=== PATIENT | male | born 1965 | race African-American/Black ===

== ENCOUNTER 2017-07-15 15:30 | Observation (INO) | payer OTHER ==
[2017-07-15 16:24] LABS: #Eosinphils 0.1 thou/uL (0.0-0.7); #Lymphocytes 1.3 thou/uL (1.20-3.40); #Monocytes 0.6 thou/uL (0.11-0.59); %Basophils 0.2 % (0.0-1.0); %Eosinophils 0.9 % (0.0-10.0); %Lymphocytes 15.7 % (21.0-51.0); %Monocytes 7.6 % (0.0-10.0); Hematocrit 38.8 % (42.0-52.0); Mean Platelet Volume 7.1 fL (7.4-10.4); Red Blood Cell (RBC) Count 4.19 mill/uL (4.70-6.10)
[2017-07-15 16:43] LABS: Lactic Acid - Sepsis 1.8 mmol/L (0.5-2.2)
--- NOTE | 2017-07-15 16:46 | CT ---
HEAD CT NONCONTRAST: Date: 07/15/17 INDICATION: Altered mental status. FINDINGS: There is no evidence of ventriculomegaly, mass effect, midline shift, or acute intracranial hemorrha ge. Mild mucosal thickening of paranasal sinuses is present. Subtle areas of white matter hypoattenu ation indicate mild chronic microvascular ischemic disease. IMPRESSION: No acute intracranial hemorrhage or mass effect. POS: [facility]
[2017-07-15 16:47] LABS: ALT (SGPT) 37 U/L (8-55); AST (SGOT) 22 U/L (5-34); Alkaline Phosphatase 84 U/L (40-150); Anion Gap 12 mmol/L (10-20); BUN (Urea Nitrogen) 19 mg/dL (8.9-20.6); Bilirubin, Total 0.2 mg/dL (0.2-1.2); CK (CPK) 821 U/L (30-200); Calc. Creatinine Clearance 0 mL/min (70-130); Calcium 9.1 mg/dL (7.8-10.44); Carbon Dioxide 26 mmol/L (22-29); Chloride 104 mmol/L (98-107); Estimated GFR-MDRD 40; Globulin 3.3 g/dL (2.4-3.5); Protein, Total 7.2 g/dL (6.0-8.3)
[2017-07-15 16:48] LABS: Troponin I Less than 0.010 ng/mL (< 0.028)
--- NOTE | 2017-07-15 16:48 | RAD ---
PORTABLE AP CHEST: Date: 07/15/17 HISTORY: Altered mental status. COMPARISON: None available. FINDINGS: Cardiac silhouette and bronchovascular markings are accentuated by shallow depth of inspiration and portable technique of the study. There are minimal linear and patchy densities at the medial right l shruthi base, probably related to superimposition of structures and suboptimal depth of inspiration acce ntuating the vascular structures. Osseous structures are intact. IMPRESSION: No acute cardiopulmonary process. POS: [facility]
[2017-07-15 16:53] LABS: Acetaminophen Less than 6.0 mcg/mL (10.0-30.0); Lipase 27 U/L (8-78); Salicylate Less than 8.0 mg/dL (15.0-30.0)
[2017-07-15] MEDS ORDERED: SODIUM CHLORIDE IVPB SCH (19:45)
[2017-07-15] MEDS ORDERED: FOSPHENYTOIN SODIUM IVPB SCH (19:45)
[2017-07-15] MEDS ORDERED: ADMIXTURE FEE IVPB SCH (19:45)
[2017-07-15 19:58] LABS: Bilirubin Negative (Negative); Blood, Urine Negative (Negative); Glucose, Urine (Dipstick) Negative (Negative); Ketone, Urine Negative (Negative); Nitrite Negative (Negative); Protein, Urine (Dipstick) Negative (Neg-Trace); Urobilinogen 0.2 mg/dL (0.2-1.0)
[2017-07-15 20:08] LABS: Anion Gap 10 mmol/L (-14-95); Lactate 1.49 mmol/L (0.50-2.20); POC Est. GFR-MDRD-African-Amer Greater than 60 (2-60); POC Estimated GFR-MDRD 52 (2-60); T. Carbon Dioxide 28.2 mmol/L (1.0-85.0); pH (Venous) 7.322 (7.35-7.45)
[2017-07-15 20:09] LABS: Amphetamine Not Detected (NotDetected); Methadone Not Detected (NotDetected); Methamphetamine Not Detected (NotDetected)
[2017-07-15] MEDS ORDERED: Piperacillin/Tazobactam 4.5 GM VIAL ONE (20:41)
[2017-07-15] MEDS ORDERED: Dextrose 50% Abboject 50 ML SYRINGE SLOW IVP PRN (22:07)
[2017-07-15] MEDS ORDERED: Diabetic Tussin 200 MG/10 ML UDCUP PO PRN (22:07)
[2017-07-15] MEDS ORDERED: Lorazepam 1 MG TAB PO PRN (22:07)
[2017-07-15] MEDS ORDERED: traMADol HCl 50 MG TAB PO PRN (22:07)
[2017-07-15] MEDS ORDERED: Dextrose 5% in Water 1,000 ML IV PRN (22:07)
[2017-07-15] MEDS ORDERED: Mag-Al 1200 mg/1200 mg/30 ML UDCUP PO PRN (22:07)
[2017-07-15] MEDS ORDERED: cloNIDine 0.1 MG TAB PO PRN (22:07)
[2017-07-15] MEDS ORDERED: Nitroglycerin 0.4 MG TAB (25 Tab Bottle) SL PRN (22:07)
[2017-07-15] MEDS ORDERED: Acetaminophen 325 MG TAB PO PRN (22:07)
[2017-07-15] MEDS ORDERED: Loratadine 10 MG TAB PO PRN (22:07)
[2017-07-15] MEDS ORDERED: Insulin Regular 300 UNITS/3 ML VIAL SC PRN ×2 (22:07)
[2017-07-15] MEDS ORDERED: Calcium Carbonate 500 MG ChewTAB PO PRN (22:07)
[2017-07-15] MEDS ORDERED: HYDROcodone/Acetaminophen 5/325 mg Tablet PO PRN (22:07)
[2017-07-15] MEDS ORDERED: hydrALAZINE 20 MG/ML VIAL SLOW IVP PRN (22:07)
[2017-07-15] MEDS ORDERED: Bisacodyl 5 MG TAB PO PRN ×2 (22:07)
[2017-07-15] MEDS ORDERED: Benzonatate 100 MG CAP PO PRN (22:07)
[2017-07-15] MEDS ORDERED: Ondansetron HCl/PF 4 MG/2 ML Vial IVP PRN (22:07)
[2017-07-15] MEDS ORDERED: Milk Of Magnesia 30 ML UDCUP PO PRN (22:07)
[2017-07-15] MEDS ORDERED: Senokot 8.6 MG TAB PO PRN ×2 (22:07)
[2017-07-15] MEDS: Sodium Chloride 0.9% 1,000 ML IV SCH (22:38)
[2017-07-15 22:40] VITALS: BMI 36.0
[2017-07-15 23:02] LABS: Troponin I Less than 0.010 ng/mL (< 0.028)
[2017-07-15] MEDS ORDERED: PROVENTIL INHALER 6.7 G (200 INHALATIONS) INH PRN (23:40)
[2017-07-16 01:52] LABS: Troponin I Less than 0.010 ng/mL (< 0.028)
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
[2017-07-16] MEDS: Sodium Chloride 0.9% 1,000 ML IV SCH (03:57)
[2017-07-16 05:17] LABS: #Eosinphils 0.1 thou/uL (0.0-0.7); #Monocytes 0.7 thou/uL (0.11-0.59); #Neutrophils 4.2 thou/uL (1.40-6.50); %Basophils 0.1 % (0.0-1.0); %Eosinophils 1.8 % (0.0-10.0); %Lymphocytes 37.2 % (21.0-51.0); %Monocytes 9.2 % (0.0-10.0); Hematocrit 39.1 % (42.0-52.0); Mean Platelet Volume 6.9 fL (7.4-10.4); Red Blood Cell (RBC) Count 4.22 mill/uL (4.70-6.10); White Blood Cell (WBC) Count 8.1 thou/uL (4.8-10.8)
[2017-07-16 05:41] LABS: Anion Gap 8 mmol/L (10-20); BUN (Urea Nitrogen) 16 mg/dL (8.9-20.6); CK (CPK) 674 U/L (30-200); Calc. Creatinine Clearance 126 mL/min (70-130); Calcium 9.3 mg/dL (7.8-10.44); Carbon Dioxide 28 mmol/L (22-29); Chloride 107 mmol/L (98-107); Estimated GFR-MDRD 84
[2017-07-16] MEDS ORDERED: Mometasone 200 MCG HFA INHALER INH SCH (06:30)
[2017-07-16] MEDS ORDERED: Beclomethasone 40 mcg 120 PUFF/8.7 GM INH INH SCH (07:00)
[2017-07-16] MEDS ORDERED: Triamterene/Hydrochlorothiazide 37.5 mg/25 mg Tablet PO SCH (09:00)
[2017-07-16] MEDS ORDERED: Fosphenytoin Sodium 100 MG in Sodium Chloride 0.9% 50 ML IVPB SCH (09:00)
[2017-07-16] MEDS ORDERED: Famotidine 20 MG TAB PO SCH (09:00)
[2017-07-16] MEDS ORDERED: NPH, Human Insulin Isophane 300 UNIT/3 ML VIAL SC SCH ×2 (09:00→21:00)
[2017-07-16] MEDS ORDERED: Amlodipine 5 MG TAB PO SCH (09:00)
[2017-07-16] MEDS ORDERED: FLU VACC QS2017-18 36 mo. & older 0.5 ML SYRINGE IM ONE (09:00)
[2017-07-16] MEDS ORDERED: Enoxaparin Sodium 40 MG/0.4 ML SYRINGE SC SCH (09:00)
[2017-07-16] MEDS ORDERED: Atorvastatin Calcium 40 MG TAB PO SCH (09:00)
--- NOTE | 2017-07-16 10:38 | PDOC.PN ---
- Subjective Encounter Start Date: 07/16/17 Encounter Start Time: 07:15 Subjective: awake and oriented well -: no sob, is hungry and wanting to eat - Objective MAR Reviewed: Yes Vital Signs & Weight: Vital Signs (12 hours) Temp Pulse Resp BP Pulse Ox 07/16/17 07:43 98 F 60 18 142/78 H 97 07/16/17 06:21 98 07/16/17 06:19 62 12 07/16/17 03:02 98.1 F 62 20 130/72 96 07/16/17 00:11 96 07/15/17 23:40 98.1 F 66 18 121/66 96 Weight Weight 249 lb 3.2 oz I&O: 07/15/17 07/16/17 07/17/17 06:59 06:59 06:59 Intake Total 1706 Output Total 625 Balance 1706 -625 Result Diagrams: 07/16/17 04:55 07/16/17 04:55 Phys Exam - Physical Examination HEENT: PERRLA, moist MMs Neck: no JVD, supple Respiratory: no wheezing, no rales Cardiovascular: RRR, no significant murmur Gastrointestinal: soft, non-tender, positive bowel sounds Musculoskeletal: no edema, pulses present Neurological: non-focal, moves all 4 limbs Psychiatric: A&O x 3 Dx/Plan (1) Altered mental status Code(s): R41.82 - ALTERED MENTAL STATUS, UNSPECIFIED Status: Resolved Comment: sec to likely seizure/hypotension or hypoglycemia-all resolved (2) Hypoglycemia Code(s): E16.2 - HYPOGLYCEMIA, UNSPECIFIED Status: Resolved (3) Hypotension Status: Resolved (4) Seizure disorder Code(s): G40.909 - EPILEPSY, UNSP, NOT INTRACTABLE, WITHOUT STATUS EPILEPTICUS Status: Chronic (5) Dyslipidemia Code(s): E78.5 - HYPERLIPIDEMIA, UNSPECIFIED Status: Chronic (6) DM type 2 (diabetes mellitus, type 2) Status: Chronic Qualifiers: Diabetes mellitus complication status: with unspecified complications 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
[2017-07-16 12:17] VITALS: BP 155/80; TEMP 98.3
--- NOTE | 2017-07-16 18:04 | CON ---
DATE OF CONSULTATION: 07/16/2017 NEUROLOGIC CONSULTATION CONSULTING PHYSICIAN: Hospitalist Service. IMPRESSION: 1. Syncopal episode secondary to hypotension and probable bradycardia from overmedication. 2. Long history of mild simple partial seizures with rare generalized tonic clonic events. 3. Subtherapeutic Dilantin level. PLAN: 1. Increase Dilantin to 400 mg daily. 2. The patient can be discharged back to the unit. 3. Adjustment and blood pressure therapy as needed. Mr. Arango is a 52-year-old man who is currently an inmate. He reports having a history of seizures s ada he was a child. He was taking Dilantin when he was younger, but discontinued it for many years . He continued to have some very mild seizures, most of which were simple partial in nature. When he went into the unit, he apparently had a blackout, which was thought possibly to be secondary to s eizures. He started back on Dilantin 300 mg per day. He has been given medication recently for shahriar atment of his blood pressure and he started feeling short of breath and bit lightheaded. He sat him self down and apparently blacked out. He had documented systolic pressure of 70 according to this a dmission history and physical. His blood pressures have rebounded to a more normal range since admi ssion. He has not had any type of seizure activity. PAST MEDICAL HISTORY: Otherwise, negative. FAMILY HISTORY: Noncontributory. ALLERGIES: IBUPROFEN, PENICILLIN. MEDICATION LIST: Reviewed. REVIEW OF SYSTEMS: No complaint of headache, nausea, vomiting, vertigo, lateralized weakness or num bness. PHYSICAL EXAMINATION: VITAL SIGNS: Blood pressure 155/80, pulse 75, respirations 18, temperature 98.3. HEENT: Pupils equal and reactive. Conjunctivae clear. NEUROLOGIC: He is alert and appropriate. His speech is fluent and clear. Cranial nerves are intac t. Motor exam shows symmetric strength. There are no abnormal movements. Sensation is intact to l ight touch. Gait was not tested. CT scan of the brain was normal. LABORATORY STUDIES: Reviewed and only notable for some mildly elevated glucoses around 172. SUMMARY: A 52-year-old man with a history of seizures since childhood with a blackout, which was mo re likely secondary to hypotension and possibly bradycardia. His vital signs are much better now, I would agree with continuing Dilantin at 400 mg per day.
--- NOTE | 2017-07-16 21:12 | DIS ---
DATE OF ADMISSION: 07/15/2017 DATE OF DISCHARGE: 07/16/2017 DISCHARGE DISPOSITION: To [facility]. PRIMARY DISCHARGE DIAGNOSES: Altered mental state secondary to hypotension and initial suspicion for seizure. SECONDARY DISCHARGE DIAGNOSES: History of seizure disorder; dyslipidemia; diabetes mellitus, type 2; obesity. PROCEDURES DONE DURING HOSPITALIZATION: CT brain done on the day of admission showed no acute intracranial abnormality. Chest x-ray done showed no acute cardiopulmonary abnormalities. Blood cultures x2, preliminary culture shows no growth. Urine culture no growth. H\T\H are 12 and 39, platelet count is 284, with 51% neutrophils. CK levels were 674. Prolactin 7.52. Initial BUN and creatinine were 19 and 1.7. One set of cardiac enzymes were negative. Lipase was 27. Urine drug screen was positive for barbiturates. DISCHARGE MEDICATIONS: Albuterol inhaler q.6 hourly p.r.n. for his asthma, Norvasc 5 mg p.o. daily, atorvastatin 40 mg p.o. daily, QVAR inhaler 80 mcg as before, Novolin N 10 units subcu q.a.m., lisinopril 5 mg p.o. daily, Lopressor 50 mg twice daily, phenytoin extended release 300 mg p.o. daily. ALLERGIES: MOTRIN and PENICILLIN. DISCHARGE PLAN: The patient to follow up with primary care physician at the custodial unit/usp unit in 1 week. He also needs to check and record fingerstick glucose, blood pressure and pulse on a daily basis for a period of 10 days, to follow up with his primary care physician for changes in his medications. BRIEF COURSE DURING HOSPITALIZATION: The patient initially was sent from [facility] after he was found slumped over in his cell. He was feeling very weak, tired and lethargic as well. The patient's initial systolic blood pressures were in the 70s. He also had mentioned to the admitting physician that his medications were all up titrated for his blood pressure and diabetes. In view of this, patient was placed under observation. He was fluid resuscitated in the ER and was placed under observation on the stroke unit. He was evaluated by Dr. Stephen and has been advised to continue Dilantin at 400 mg daily. His hypertensive and diabetic medications both were held. The patient soon woke up and was fully oriented around 7:00 a.m. this morning. He has ambulated to the restroom and back with no dizziness. His blood pressure and his fingerstick glucose readings were picking up and were fairly stable. He has been placed gingerly on small doses of antihypertensive medications and diabetic medications. Please note these need to be slowly up titrated at the custodial unit via primary care physician. He needs to be checked for fingerstick glucose, blood pressure and pulse on a daily basis for any changes in his medications. He is otherwise neurologically and hemodynamically stable and has been cleared for discharge by Neurology. Please see a [id number] documentation on [employer] for the day of discharge. SAMMIE
== END 2017-07-16 18:01 ==
LOC: ERS 15:30 → 2SE 21:38
PROVIDERS: ADMIT Internal Medicine; ATTEND Internal Medicine
DX: I95.9 Hypotension, unspecified (principal); R41.82 Altered mental status, unspecified; G40.909 Epilepsy, unspecified, not intractable, without status epilepticus; E78.5 Hyperlipidemia, unspecified; E66.9 Obesity, unspecified; R53.83 Other fatigue; I10 Essential (primary) hypertension; F31.9 Bipolar disorder, unspecified; R09.02 Hypoxemia; M62.82 Rhabdomyolysis; E11.649 Type 2 diabetes mellitus with hypoglycemia without coma; J45.909 Unspecified asthma, uncomplicated; Z68.35 Body mass index [BMI] 35.0-35.9, adult; Z79.4 Long term (current) use of insulin; Z79.899 Other long term (current) drug therapy; Z88.6 Allergy status to analgesic agent; Z88.0 Allergy status to penicillin; Z90.89 Acquired absence of other organs; Z87.891 Personal history of nicotine dependence
CPT/HCPCS: 36415; 36416; 70450; 71010; 80048; 80053; 80185; 80306; 80307; 81003; 82140; 82330; 82550; 82553; 82803; 83605; 83690; 84146; 84484; 85025; 85379; 87040; 87077; 87086; 93005; 93306; 94760; 96361; 96365; 96372; A4216; G0378; J1650; J1815; J2543; J7050; Q2009

== ENCOUNTER 2020-11-26 14:34 | Emergency (ER) | payer OTHER, SELFPAY ==
[2020-11-26 15:29] LABS: #Eosinphils 0.1 thou/uL (0.0-0.7); #Lymphocytes 1.9 thou/uL (1.20-3.40); #Monocytes 0.4 thou/uL (0.11-0.59); #Neutrophils 3.7 thou/uL (1.40-6.50); %Basophils 0.6 % (0.0-1.0); %Eosinophils 1.4 % (0.0-10.0); %Lymphocytes 30.5 % (21.0-51.0); %Neutrophils 60.6 % (42.0-75.0); Hemoglobin 12.7 g/dL (14.0-18.0); Mean Corpuscular HGB CONC 31.2 g/dL (32.0-36.0); Mean Corpuscular Hemoglobin 28.7 pg (27.0-31.0); Mean Corpuscular Volume 91.9 fL (78.0-98.0); Mean Platelet Volume 6.9 fL (7.4-10.4); Platelet Count 343 thou/uL (130-400); RBC Distribution Width 12.5 % (11.5-14.5); Red Blood Cell (RBC) Count 4.42 mill/uL (4.70-6.10); White Blood Cell (WBC) Count 6.1 thou/uL (4.8-10.8)
--- NOTE | 2020-11-26 15:33 | CT ---
CT head noncontrast HISTORY: Fall. Injury. COMPARISON: 07/15/2017. FINDINGS: There is no evidence of acute intracranial hemorrhage or infarct. Mild chronic ischemic sma ll vessel disease within the basal ganglia and periventricular white matter. There is no mass effect or shift of midline structures. Visualized paranasal sinuses remain well aerated. IMPRESSION : No acute abnormalities are demonstrated.
[2020-11-26 15:46] LABS: ALT (SGPT) 12 U/L (8-55); AST (SGOT) 9 U/L (5-34); Albumin 3.3 g/dL (3.5-5.0); Alkaline Phosphatase 122 U/L (40-110); Anion Gap 12 mmol/L (10-20); BUN (Urea Nitrogen) 18 mg/dL (8.4-25.7); Bilirubin, Total 0.3 mg/dL (0.2-1.2); CK (CPK) 109 U/L (30-200); Calc. Creatinine Clearance 0 mL/min (70-130); Calcium 8.6 mg/dL (7.8-10.44); Carbon Dioxide 29 mmol/L (22-29); Chloride 100 mmol/L (98-107); Globulin 3.2 g/dL (2.4-3.5); Glucose 314 mg/dL (70-105); Potassium 3.7 mmol/L (3.5-5.1); Protein, Total 6.5 g/dL (6.0-8.3); Sodium 137 mmol/L (136-145)
--- NOTE | 2020-11-29 10:30 | EKG ---
Test Reason : Blood Pressure : / mmHG Vent. Rate : 110 BPM Atrial Rate : 110 BPM P-R Int : 132 ms QRS Dur : 090 ms QT Int : 330 ms P-R-T Axes : 072 074 051 degrees QTc Int : 446 ms Sinus tachycardia Minimal voltage criteria for LVH, may be normal variant Nonspecific T wave abnormality Abnormal ECG Benign early repolarization Confirmed by HUMA TORRES, KATIUSKA Latham ([id number]), editor news MARSHALL ALCANTARA ([id number]) on 11/29/2020 10:29:47 AM Referred By: Confirmed By:KATIUSKA FINN MD
== END 2020-11-26 16:30 | disposition home or self-care (01) ==
LOC: ERS 14:34
DX: R55 Syncope and collapse (principal); S09.90XA Unspecified injury of head, initial encounter; I10 Essential (primary) hypertension; E10.9 Type 1 diabetes mellitus without complications; G40.909 Epilepsy, unspecified, not intractable, without status epilepticus; J45.909 Unspecified asthma, uncomplicated; Z87.891 Personal history of nicotine dependence
CPT/HCPCS: 36415; 70450; 80053; 82550; 83605; 85025; 93005

== ENCOUNTER 2020-12-24 11:45 | Emergency (ER) | payer SELFPAY ==
[2020-12-24 12:20] LABS: #Basophils 0.1 thou/uL (0.0-0.2); #Eosinphils 0.1 thou/uL (0.0-0.7); #Monocytes 0.7 thou/uL (0.11-0.59); #Neutrophils 3.6 thou/uL (1.40-6.50); %Basophils 1.9 % (0.0-1.0); %Eosinophils 1.5 % (0.0-10.0); %Monocytes 10.3 % (0.0-10.0); %Neutrophils 55.3 % (42.0-75.0); Hemoglobin 12.2 g/dL (14.0-18.0); Mean Corpuscular HGB CONC 32.8 g/dL (32.0-36.0); Mean Corpuscular Hemoglobin 30.5 pg (27.0-31.0); Mean Platelet Volume 6.7 fL (7.4-10.4); Platelet Count 390 thou/uL (130-400); RBC Distribution Width 12.7 % (11.5-14.5); Red Blood Cell (RBC) Count 3.99 mill/uL (4.70-6.10); White Blood Cell (WBC) Count 6.6 thou/uL (4.8-10.8)
[2020-12-24 12:45] LABS: Acetaminophen Less than 6.0 mcg/mL (10.0-30.0); Alcohol Less than 10 mg/dL (Less than 10); Salicylate Less than 8.0 mg/dL (15.0-30.0)
[2020-12-24 12:51] LABS: ALT (SGPT) 12 U/L (8-55); AST (SGOT) 11 U/L (5-34); Albumin 3.8 g/dL (3.5-5.0); Alkaline Phosphatase 127 U/L (40-110); Anion Gap 13 mmol/L (10-20); BUN (Urea Nitrogen) 23 mg/dL (8.4-25.7); Bilirubin, Total 0.2 mg/dL (0.2-1.2); Calc. Creatinine Clearance 0 mL/min (70-130); Calcium 9.1 mg/dL (7.8-10.44); Carbon Dioxide 28 mmol/L (22-29); Chloride 101 mmol/L (98-107); Globulin 3.4 g/dL (2.4-3.5); Glucose 346 mg/dL (70-105); Potassium 3.9 mmol/L (3.5-5.1); Protein, Total 7.2 g/dL (6.0-8.3); Sodium 138 mmol/L (136-145)
[2020-12-24 13:55] LABS: Bilirubin Negative (Negative); Blood, Urine Negative (Negative); Clarity Clear (Clear); Glucose, Urine (Dipstick) Greater than 1000 mg/dL (Negative); Ketone, Urine Negative (Negative); Leukocyte Negative Leu/uL (Negative); Nitrite Negative (Negative); Protein, Urine (Dipstick) 20 mg/dL (Neg-Trace); Specific Gravity, Urine 1.047 (1.002-1.036); Urobilinogen Normal mg/dL (Less than 2); pH, Urine 5.5 (5.0-9.0)
[2020-12-24 14:06] LABS: Cocaine Metabolite Screen Not Detected (NotDetected); Medtox Reader # READER 4; Methamphetamine Detected (NotDetected); Opiate Screen Not Detected (NotDetected); Phencyclidine (PCP) Not Detected (NotDetected); THC/Cannabinoid Screen Detected (NotDetected)
[2020-12-24 14:07] LABS: Amphetamine Detected (NotDetected); Barbiturates Screen Not Detected (NotDetected); Benzodiazepine Screen Not Detected (NotDetected); Medtox Control Line Valid? VALID (VALID); Methadone Not Detected (NotDetected); Oxycodone Screen Not Detected (NotDetected); Tricyclic Screen Detected (NotDetected)
[2020-12-24] MEDS ORDERED: Lorazepam 1 MG TAB ONE (14:14)
== END 2020-12-25 14:09 | disposition home or self-care (01) ==
LOC: ERS 11:45
DX: F15.10 Other stimulant abuse, uncomplicated (principal); R44.1 Visual hallucinations; E11.9 Type 2 diabetes mellitus without complications; I10 Essential (primary) hypertension; J45.909 Unspecified asthma, uncomplicated; F17.210 Nicotine dependence, cigarettes, uncomplicated; Z79.899 Other long term (current) drug therapy
CPT/HCPCS: 70450; 80053; 80306; 80307; 81003; 85025; 93005